=== PATIENT | male | born 1995 | race African-American/Black ===

== ENCOUNTER 2017-11-02 17:45 | Emergency (ER) | payer MEDICARE ==
[2017-11-02 18:25] VITALS: BP 150/65; PULSE 78; RESP 18; TEMP 98.1
--- NOTE | 2017-11-02 19:06 | ED ---
Lower Extremity Injury HPI - General Chief Complaint: Extremity Injury, Lower Stated Complaint: Knee pain Time Seen by Provider: 11/02/17 18:39 Source: patient, RN notes reviewed, old records reviewed Mode of arrival: ambulatory - History of Present Illness Initial Comments: This patient is a 22 year old male with CC of right knee pain, and right lower leg numbness sensation today while at work. He reports that he had twisted his knee at work. Patient has a history of right knee meniscal tear, he does follow up with orthopedic. Patient has no otehr symptoms at this time. PAtient reports full range of motion of leg, ankle, and toes. - Related Data Previous Rx's Medication Instructions Recorded Ibuprofen [Motrin] 600 mg PO Q8HR PRN #20 tab 11/02/17 Allergies Allergy/AdvReac Type Severity Reaction Status Date / Time IMMUNIZATIONS Allergy Unknown Uncoded 11/02/17 18:26 Review of Systems ROS Statement: Those systems with pertinent positive or pertinent negative responses have been documented in the HPI. ROS Other: All systems not noted in ROS Statement are negative. Past Medical History Additional Past Medical History / Comment(s): torn ACL History of Any Multi-Drug Resistant Organisms: None Reported Past Surgical History: No Surgical Hx Reported Additional Past Surgical History / Comment(s): TESTICLE TORSION Past Psychological History: No Psychological Hx Reported Smoking Status: Never smoker Past Alcohol Use History: None Reported Past Drug Use History: None Reported General Exam - General Exam Comments Initial Comments: Well appearing 22 year old male. No acute distress. General appearance: alert, in no apparent distress Head exam: Present: atraumatic, normocephalic, normal inspection Eye exam: Present: normal appearance, PERRL, EOMI. Absent: scleral icterus, conjunctival injection, periorbital swelling ENT exam: Present: normal exam, mucous membranes moist Neck exam: Present: normal inspection. Absent: tenderness, meningismus, lymphadenopathy Respiratory exam: Present: normal lung sounds bilaterally. Absent: respiratory distress, wheezes, rales, rhonchi, stridor Cardiovascular Exam: Present: regular rate, normal rhythm, normal heart sounds. Absent: systolic murmur, diastolic murmur, rubs, gallop, clicks GI/Abdominal exam: Present: soft, normal bowel sounds. Absent: distended, tenderness, guarding, rebound, rigid Extremities exam: Present: normal inspection, full ROM, normal capillary refill. Absent: tenderness, pedal edema, joint swelling, calf tenderness Right Upper Leg exam: Present: normal inspection, full ROM Knee exam: Present: normal inspection, full ROM Lower Leg exam: Present: normal inspection, full ROM Ankle exam: Present: normal inspection, full ROM Foot/Toe exam: Present: normal inspection, full ROM Neurovascular tendon exam: Present: no vascular compromise, sensory deficit ( Patient reports his right foot has abnormal sensation, however he does feel all foorms of touch. ) Gait: observed and normal Back exam: Present: normal inspection Neurological exam: Present: alert, oriented X3, CN II-XII intact Psychiatric exam: Present: normal affect, normal mood Skin exam: Present: warm, dry, intact, normal color. Absent: rash Course Vital Signs 11/02/17 18:21 Temperature 98.1 F Pulse Rate 78 Respiratory 18 Rate Blood Pressure 150/65 O2 Sat by Pulse 99 Oximetry Medical Decision Making - Medical Decision Making This is a 22 year old male whom left work due to right knee pain after twisting it and abnormal sensatoin to leg and foot. He had no trauma. Has a history of meniscal tear. Patient has no sensory and motor deficits. Patient has no bruising. Patient knee xray shows no acute fracture but some minor spurring. Patient advised to take antiinflammatory medication and follow up with orthopdic. All questions answered and return parameters discussed. - Radiology Data Radiology results: report reviewed Xray shows inor spurring, no acute fracture or dislocation. Disposition Clinical Impression: Right knee sprain, Paresthesia of right foot Disposition: HOME SELF-CARE Condition: Good Instructions: Paresthesia (ED) Additional Instructions: Patient advised to follow-up with primary care provider. Return to the emergency department if any alarming signs or symptoms occur. Prescriptions: Ibuprofen [Motrin] 600 mg PO Q8HR PRN #20 tab PRN Reason: Pain Referrals: Conrad Baptiste MD [Primary Care Provider] - 1-2 days Cem Barreto MD [STAFF PHYSICIAN] - 1-2 days Time of Disposition: 19:23
--- NOTE | 2017-11-02 19:15 | XR ---
EXAMINATION TYPE: XR knee complete RT DATE OF EXAM: 11/02/2017 COMPARISON: NONE HISTORY: Knee pain TECHNIQUE: 3 views FINDINGS: There is minimal spurring of the medial femoral and tibial condyles. I see no fracture nor dislocation. There is no sign of joint effusion. 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 No fracture.
== END 2017-11-02 19:46 | disposition home or self-care (01) ==
LOC: EC 17:45
DX: S83.91XA Sprain of unspecified site of right knee, initial encounter (principal); R20.2 Paresthesia of skin; X58.XXXA Exposure to other specified factors, initial encounter; Z88.8 Allergy status to other drugs, medicaments and biological substances
CPT/HCPCS: 99284